=== PATIENT | male | born 1980 | race Caucasian/White ===

== ENCOUNTER → 2018-09-30 | Outpatient (CLI) | payer OTHER ==
--- NOTE | 2018-09-30 15:09 | Diagnostic Imaging Report ---
INDICATION: Pain in the right thumb. TIME OF EXAM: 02:55 p.m. FINDINGS: Three views of right thumb were obtained. Alignment is normal. Joint spaces are maintained. Phalanges and first metacarpal are intact. Old fracture deformity of the fifth metacarpal is seen. Carpus is unremarkable. IMPRESSION: No acute bony abnormality is detected. Dictated by: Dictated on workstation # [id number]
== END ==
LOC: RAD FS 14:48
PROVIDERS: ATTEND Physician Assistant
DX: M65.311 Trigger thumb, right thumb (principal)
CPT/HCPCS: 73140